=== PATIENT | male | born 2000 | race Two or more races ===

== ENCOUNTER 2021-07-01 21:15 | Emergency (ER) | payer BC ==
[~2021-07-01] VITALS: Ht 182.9 cm; Wt 90.7 kg
--- NOTE | 2021-07-01 23:12 | NUR ---
Patient discharged to home in stable condition. Written and verbal after care instructions given. Patient verbalizes understanding of instruction.
[2021-07-01 23:13] VITALS: BP 133/70
== END 2021-07-01 23:13 | disposition home or self-care (01) ==
LOC: ER 21:23
DX: S43.084A Other dislocation of right shoulder joint, initial encounter (principal); Z60.2 Problems related to living alone; X58.XXXA Exposure to other specified factors, initial encounter; Y93.89 Activity, other specified; Y92.89 Other specified places as the place of occurrence of the external cause; Y99.8 Other external cause status
CPT/HCPCS: 73030-TC

== ENCOUNTER 2023-01-13 12:37 | Emergency (ER) | payer BC ==
[~2023-01-13] VITALS: Ht 182.9 cm; Wt 90.7 kg
--- NOTE | 2023-01-13 13:00 | NUR ---
RECEIVED PT 22 YRS MALE walking in c/o testicale pain started this horing dineses hx taruma
--- NOTE | 2023-01-13 13:05 | NUR ---
UA SENT TO LAB
--- NOTE | 2023-01-13 13:40 | NUR ---
US DONE AT BED SIDE
[2023-01-13 13:55] LABS: BILIRUBIN,URINE NEGATIVE (NEGATIVE); COLOR,URINE YELLOW (YELLOW); LEUKOCYTE ESTERASE ,URINE NEGATIVE (NEGATIVE); NITRITE, URINE NEGATIVE (NEGATIVE); PROTEIN,URINE NEGATIVE (NEGATIVE); UGLUCOSE NEGATIVE (NEGATIVE); UROBILINOGEN,URINE 0.2 EU/dL (0.2)
[2023-01-13] MEDS ORDERED: LEVO500T90 PO (14:10)
--- NOTE | 2023-01-13 14:18 | NUR ---
Patient discharged to home in stable condition. Written and verbal after care instructions given. Patient verbalizes understanding of instruction.
[2023-01-13 14:23] VITALS: BP 134/64
== END 2023-01-13 14:24 | disposition home or self-care (01) ==
LOC: ER 12:41
DX: N45.1 Epididymitis (principal); Z79.899 Other long term (current) drug therapy
CPT/HCPCS: 76870-TC; 87491; 87591